=== PATIENT | female | born 1960 | race Caucasian/White ===

== ENCOUNTER 2016-10-13 05:23 | Day surgery (SDC) | payer OTHER ==
[2016-10-11 10:08] VITALS: BMI 45.7
[2016-10-13] MEDS ORDERED: ACETAMINOPHEN 325 MG TABLET (FP) PO PRN (11:16)
[2016-10-13] MEDS ORDERED: oxyCODONE HCL 5 MG TABLET PO PRN (11:16)
[2016-10-13] MEDS ORDERED: IBUPROFEN 400 MG TABLET (FP) PO PRN (11:16)
--- NOTE | 2016-10-13 11:16 | HP ---
History & Physical Update - History History: No Change - Physical Physical: No Change - Assessment Assessment: No Change - Plan Plan: No Change (ovarian cyst, post menopausal bleeding - for unilateral oophorectomy, hysteroscopy, D&C)
[2016-10-13] MEDS ORDERED: ONDANSETRON 4 MG/2 ML VIAL IVPUSH PRN (11:20)
[2016-10-13] MEDS ORDERED: PROMETHAZINE HCL 25 MG/1 ML VIAL IVPUSH PRN (11:20)
[2016-10-13] MEDS ORDERED: MIDAZOLAM HCL 2 MG/2 ML SINGLE DOSE VIAL ONE (11:30)
[2016-10-13] MEDS ORDERED: LACTATED RINGERS SOLUTION 1,000 ML IV SCH (11:30)
[2016-10-13] MEDS ORDERED: BUPIVACAINE HCL/PF 0.5% (5MG/ML) 10 ML VIAL ONE (11:44)
[2016-10-13] MEDS ORDERED: PROPOFOL 20 ML ONE (12:10)
[2016-10-13] MEDS ORDERED: ROCURONIUM BROMIDE 50 MG/5 ML VIAL ONE (12:11)
[2016-10-13] MEDS ORDERED: LIDOCAINE HCL/PF 2% SDV 5ML VIAL ONE ×2 (12:11→13:02)
[2016-10-13] MEDS ORDERED: LIDOCAINE HCL 2% JELLY (5 ML/TUBE) ONE (12:11)
[2016-10-13] MEDS ORDERED: ceFAZolin SODIUM 1 GM VIAL IVPB ONE ×2 (12:13)
[2016-10-13] MEDS ORDERED: ceFAZolin SODIUM 1 GM VIAL ONE (12:21)
[2016-10-13] MEDS ORDERED: ONDANSETRON 4 MG/2 ML VIAL ONE (13:02)
[2016-10-13] MEDS ORDERED: DEXAMETHASONE SOD PHOSPHATE 4 MG/1 ML VIAL ONE (13:02)
[2016-10-13] MEDS ORDERED: KETOROLAC TROMETHAMINE 30 MG/1 ML VIAL ONE (13:02)
[2016-10-13] MEDS ORDERED: NEOSTIGMINE METHYLSULFATE 0.5 MG/ML - 10 ML MDV ONE (13:15)
[2016-10-13] MEDS ORDERED: GLYCOPYRROLATE 0.2 MG/1 ML VIAL ONE (13:15)
--- NOTE | 2016-10-13 14:00 | OP ---
Operative Note - Note: Operative Date: 10/13/16 Operation: left salpingo oophorectomy, hysteroscopy, D&C, cervical polypectomy Findings: large fluid filled ovarian cyst - left ovary normal right ovary and fallopian tube cervical polyp normal appearing endometrium Surgeon: Jennifer Rivero Roving Machine Operator: Ester Moy Anesthesiologist/CORN GRINDER: Zaira Edwards MD Anesthesia: General Specimens Removed: left fallopian tube and ovary, endometrial currettings, cervical polyp Estimated Blood Loss (mls): 25 Operative Report Dictated: Yes
[2016-10-13] MEDS ORDERED: oxyCODONE HCL 5 MG TABLET ONE (16:28)
[2016-10-13] MEDS ORDERED: oxyCODONE HCL 5 MG TABLET PO ONE (16:31)
[2016-10-13 17:43] VITALS: BP 130/70; PULSE 78
[2016-10-13 17:47] VITALS: TEMP 98
--- NOTE | 2016-10-14 13:29 | PATH ---
Surgical Pathology Report Patient Name: UVALDO RASMUSSEN [facility]. Rec. #: [id number] /Age/Gender: 1960 (Age: 56) / F Account: [id number] Location: [facility] SURGICAL Taken: 10/13/2016 Received: 10/13/2016 Reported: 10/14/2016 Physicians: Jennifer Rivero M.D. Specimen(s) Received A: LEFT OVARIAN CYST B: CERVICAL POLYP C: ENDOMETRIAL CURETTINGS Clinical History Left ovarian cyst Intraoperative Consult Diagnosis Left ovarian cyst, gross examination: Lining with small papillary projections. No overt features of malignancy. Defer to permanents for final interpretation. Dr. Gallego, 10/13/16. Final Diagnosis A. OVARY AND FALLOPIAN TUBE, LEFT, SALPINGO-OOPHORECTOMY: OVARY WITH BENIGN PAPILLARY SEROUS CYSTADENOMA. FALLOPIAN TUBES FOCAL TUBO-OVARIAN ADHESIONS. B. CERVICAL POLYP, POLYPECTOMY: ULCERATED ENDOCERVICAL POLYP C. ENDOMETRIUM, CURETTAGE: FRAGMENTS OF INACTIVE ENDOMETRIUM. FRAGMENTS OF BENIGN ENDOCERVICAL TISSUE. FRAGMENTS OF BENIGN SQUAMOUS EPITHELIUM. Electronically Signed Ventura Gallego M.D. Gross Description A. Received fresh labeled "left ovary and tube" is a 7.0 x 6.5 x 1.0 cm ovarian cyst with an attached 5 cm in length portion of fimbriated fallopian tube. The outer surface of the fallopian tube is jackson-red. Sectioning reveals an unremarkable lumen. The outer surface of the ovarian cyst displays a focal defect and is jackson-pink and smooth. There is no fluid present within the lumen. The inner lining displays focal small papillary excrescences. An intraoperative gross examination is performed. Gear Generator Set Up Operator sections are submitted in 9 cassettes as follows: 1-fimbria; 2-cross sections of fallopian tube; 5-1-abhmlpljdbdkxb cyst. B. Received in formalin labeled "cervical polyp" is a 1.5 x 0.6 x 0.2 cm pink-jackson, polypoid portion of soft tissue. Also received within the same container is a 2.3 x 2.2 x 0.3 cm aggregate of jackson-red soft tissue fragments admixed with mucus. The specimen is entirely submitted in 2 cassettes as follows: 1-polyp; 2-separate soft tissue fragments. C. Received in formalin labeled "endometrial curettings" and a 1.6 x 1.5 x 0.3 cm aggregate of jackson-red soft tissue fragments. The formalin is filtered and the specimen is entirely submitted in one cassette. 10/13/201610/13/2016
--- NOTE | 2016-10-19 09:58 | OP ---
DATE OF OPERATION: 10/13/2016 PREOPERATIVE DIAGNOSIS: Postmenopausal bleeding and large approximately 8-cm ovarian cyst. PROCEDURE: Left salpingo-oophorecetomy, hysteroscopy, dilatation and curettage, and cervical polypectomy. SURGEON: Jennifer Rivero MD WARDROBE COORDINATOR: Ester Moy MD. ESTIMATED BLOOD LOSS: 25 mL. COMPLICATIONS: None. ANESTHESIA: General administered by Zaira Edwards MD. FINDINGS: Included large fluid-filled ovarian cyst in the left ovary, normal right ovary and fallopian tube, a cervical polyp, and a normal appearing intrauterine cavity. SPECIMENS REMOVED: Included the left fallopian tube and ovary, endometrial curettings, and cervical polyp. BRIEF HISTORY AND PROCEDURE: Patient is a 56-year-old female who had been seen in the office with complaints of postmenopausal bleeding. She did not tolerate an interoffice endometrial biopsy, and upon ultrasound examination was noted to also have an incidental large ovarian cyst. The cyst was observed for approximately 2-3 months, and it persisted, at which point, the patient signed consents and agreed to undergo a laparoscopic removal of the ovarian cyst as well as a diagnostic hysteroscopy and dilatation and curettage. The patient was admitted to [facility] on October 13, 2016. Consents for the procedure were reconfirmed. The patient was taken back to the operating room where she was given general anesthesia by Dr. Edwards without difficulty. She was placed in the dorsal lithotomy position, prepped and draped in the usual sterile fashion, and a hard time-out was performed. A Medina catheter was placed under sterile conditions. A 5-mm skin incision was created in the base of the umbilicus, and a Veress needle was placed intraabdominally. The abdomen was insufflated with CO2 gas. A 5-mm trocar was placed intraabdominally through the umbilical incision, and after confirmation of intraabdominal placement after insertion of the camera, two bilateral lower quadrant ports were placed, 5 mm on the left and 10 mm on the right lower quadrant. The ovary was elevated and attempted to be dissected off its attachment to the infundibulopelvic ligament as well as to the utero-ovarian ligament. However, the ovary was too big to manipulate at this point. During handling, the ovary and cyst were ruptured, the fluid was copiously irrigated and suctioned. At this point, the ovary was able to be elevated and dissected off its attachments with the LigaSure device, and the ovary and fallopian tube were both placed inside EndoCatch bag and removed from the 10-mm right low quadrant port without difficulty. Excellent hemostasis was observed at the surgical site. The right fallopian tube and ovary appeared to be normal. No other intraabdominal abnormalities including any issues with the appendix were appreciated upon observation. Irrigation was completed in the pelvis at this time. Again, good hemostasis was achieved at the operating site. All the instruments were then removed from the abdomen. Abdomen was desufflated. Trocars were removed, and the skin incisions reapproximated using 0 Biosyn suture and skin glue. Attention was then turned below to the vagina, where a speculum was placed. Upon placement of the speculum, immediate visualization of the cervical polyp was appreciated, which was excised with polyp forceps at this time. The cervix was then dilated to accommodate diagnostic hysteroscope, which was placed into the fundus. Bilateral tubal ostia were appreciated. No intrauterine abnormalities or lesions were appreciated. A dilatation and curettage was then completed in the usual fashion, and endometrial curettings were sent to Pathology for permanent evaluation. All instruments were removed from the vagina. All sponge, needle, and instrument counts were reported to be correct. The patient was then awoken from anesthesia, Medina catheter was removed, and she was recovering in stable condition in the postoperative area after the procedure. JENNIFER RIVERO DO /[id number]
== END 2016-10-13 17:30 | disposition home or self-care (01) ==
LOC: JASU-SURG 05:23
PROVIDERS: ATTEND Obstetrics & Gynecology
PROC: 0UDB8ZX Extraction of Endometrium, Via Natural or Artificial Opening Endoscopic, Diagnostic (ICD-10-PCS; 2016-10-13)
PROC: 0UB14ZZ Excision of Left Ovary, Percutaneous Endoscopic Approach (ICD-10-PCS; principal; 2016-10-13 11:00)
PROC: 0UB64ZZ Excision of Left Fallopian Tube, Percutaneous Endoscopic Approach (ICD-10-PCS; 2016-10-13 11:00)
PROC: 0UBC8ZX Excision of Cervix, Via Natural or Artificial Opening Endoscopic, Diagnostic (ICD-10-PCS; 2016-10-13 11:00)
DX: N83.202 Unspecified ovarian cyst, left side (principal); N84.1 Polyp of cervix uteri
CPT/HCPCS: 88305-TC; 88307-TC; 94760

== ENCOUNTER 2018-10-11 10:06 | Day surgery (SDC) | payer OTHER | END 2018-10-11 12:40 | disposition home or self-care (01) | LOC: JASU-ENDO 10:06 ==

== ENCOUNTER 2019-07-03 23:40 | Emergency (ER) | payer OTHER ==
[2019-07-03 23:52] VITALS: BP 148/84; PULSE 90; TEMP 98.4; BMI 44.9
[2019-07-04] MEDS ORDERED: ONDANSETRON 4 MG/2 ML VIAL IVPB ONE (00:03)
[2019-07-04] MEDS ORDERED: KETOROLAC TROMETHAMINE 30 MG/1 ML VIAL IVPUSH ONE (00:03)
[2019-07-04] MEDS ORDERED: SODIUM CHLORIDE 1,000 ML IV ONE (00:03)
--- NOTE | 2019-07-04 00:04 | PDOC ---
History of Present Illness - General Chief Complaint: Pain Stated Complaint: ABD PAIN History Source: Patient Exam Limitations: No Limitations - History of Present Illness Initial Comments: 07/04/19 00:00 This is a 59-year-old female who is morbidly obese. Patient comes in complaining of right upper quadrant abdominal pain x1 day. Patient said pain began after she ate breakfast. Patient denies any vomiting or diarrhea. Patient denies any fevers or chills. Patient has a history significant for type 2 diabetes. Allergies: as per nursing notes Past Medical History: none Social history: Lives with family. No smoking. No alcohol. No illicit drugs. Surgical history: None General: No fevers or chills, no weakness, no weight loss HEENT: No change in vision. No sore throat,. No ear pain CardioVascular: no chest discomfort. No shortness of breath Respiratory:No cough, or wheezing. Gastrointestinal: no nausea, vomiting, diarrhea or constipation, No rectal bleeding, abdominal pain as per HPI Genitourinary: No dysuria, hematuria, or frequency Musculoskeletal: No joint or muscle pain or swelling Neurologic: No headache, vertigo, dizziness or loss of consciousness Psychiatric: nor depression Skin: No rashes or easy bruising Endocrine: no increased thirst or abnormal weight change Allergic: no skin or latex allergy All other systems reviewed and normal Exam: General: Well-nourished well-developed individual, no acute distress HEENT: Throat: Normal, tonsils normal, no erythema or exudate Neck: Supple, no meningeal signs, no lymphadenopathy Eyes::Pupils equal reactive and round, extraocular motion intact Chest: Nontender to palpation Cardiac: S1-S2 normal, regular rate and rhythm, no murmurs rubs or gallops Respiratory: Lungs clear to auscultation bilateral Abdomen: Soft, nondistended, normal bowel sounds, there is moderate tenderness right upper quadrant and epigastric area no guarding or rebound Extremities: Warm, dry, no cyanosis, clubbing, or edema Skin: No rashes Neuro: Alert and oriented x3, CN II - XII intact, nonfocal exam with normal strength, normal sensation, normal reflexes, normal gait, Psych: Normal mood and affect Assessment and plan: This is a 59-year-old female who is morbidly obese and history of diabetes who comes in with right upper quadrant epigastric abdominal pain. Patient is tender over the gallbladder and epigastric area. Work-up initiated including CBC, comp, lipase and ultrasound. Patient given IV fluids and Toradol for the pain. Past History - Past Medical History Allergies/Adverse Reactions: Allergies Allergy/AdvReac Type Severity Reaction Status Date / Time No Known Allergies Allergy Verified 10/11/16 10:00 Home Medications: Ambulatory Orders NK [No Known Home Medication] 07/03/19 Anemia: No Asthma: No Cancer: No Cardiac Disorders: Yes (OCCASIONAL PALPITATIONS) CVA: No COPD: No CHF: No Dementia: No Diabetes: Yes ('DIET CONTROLLED') GI Disorders: No Disorders: No HTN: No Hypercholesterolemia: No Liver Disease: No Seizures: No Thyroid Disease: No - Psycho Social/Smoking Cessation Hx Smoking History: Never smoked Hx Alcohol Use: Yes (social) Drug/Substance Use Hx: No Substance Use Type: None Hx Substance Use Treatment: No *Physical Exam - Vital Signs Last Vital Signs Temp Pulse Resp BP Pulse Ox 98.4 F 90 18 148/84 98 07/03/19 23:43 07/03/19 23:43 07/03/19 23:43 07/03/19 23:43 07/03/19 23:43 ED Treatment Course - LABORATORY CBC & Chemistry Diagram: 07/04/19 00:55 07/04/19 00:55 Discharge - Discharge Information Problems reviewed: Yes Clinical Impression/Diagnosis: Abdominal pain Qualifiers: Abdominal location: upper abdomen, unspecified Qualified Code(s): R10.10 - Upper abdominal pain, unspecified Condition: Stable Disposition: HOME - Admission No - Follow up/Referral - Patient Discharge Instructions Additional Instructions: It is important you follow-up with your doctor if you continue to have abdominal pain. Return to the emergency department immediately with ANY new, persistent or w orsening symptoms. Continue any medications as previously prescribed by your physician. You should follow up with your primary doctor as soon as possible regarding today's emergency department visit. . Please make sure your doctor reviews the results of your emergency evaluation. Thank you for coming to the Emergency Department today for your care. It was a pleasure to see you today. Please note that your evaluation is INCOMPLETE until you follow-up with your doctor. - Post Discharge Activity
[2019-07-04] MEDS ORDERED: KETOROLAC TROMETHAMINE 30 MG/1 ML VIAL ONE (00:07)
[2019-07-04] MEDS ORDERED: ONDANSETRON 4 MG/2 ML VIAL ONE (00:07)
[2019-07-04 01:30] LABS: BASO % 0.9 % (0-2.0); EOS % 3.3 % (0-4.5); HEMATOCRIT 40.8 % (32.4-45.2); HEMOGLOBIN 13.3 GM/dL (10.7-15.3); LYMPH % 32.3 % (8-40); MCH 26.7 pg (25.7-33.7); MCHC 32.6 g/dl (32.0-36.0); MEAN CELL VOLUME 81.9 fl (80-96); MEAN PLT VOLUME 8.6 fl (7.5-11.1); MONO % 7.6 % (3.8-10.2); NEUT % 55.9 % (42.8-82.8); PLATELET COUNT 341 K/MM3 (134-434); RBC 4.98 M/mm3 (3.60-5.2); RDW 13.9 % (11.6-15.6); WHITE BLOOD COUNT 10.7 K/mm3 (4.0-10.0)
[2019-07-04 01:33] LABS: LIPASE 58 U/L (73-393)
[2019-07-04] MEDS ORDERED: HYOSCYAMINE SULFATE 0.125 MG *ODT PO ONE (02:37)
[2019-07-04] MEDS ORDERED: MAG HYDROX/AL HYDROX/SIMETH 30 ML UNIT-DOSE CUP PO ONE (02:37)
[2019-07-04] MEDS ORDERED: HYOSCYAMINE SULFATE 0.125 MG *ODT ONE (02:53)
[2019-07-04] MEDS ORDERED: MAG HYDROX/AL HYDROX/SIMETH 30 ML UNIT-DOSE CUP ONE (02:53)
[2019-07-04 02:58] LABS: ALBUMIN 3.3 g/dl (3.4-5.0); ALK PHOS 138 U/L (45-117); ANION GAP 6 MMOL/L (8-16); BILIRUBIN,TOTAL 0.5 mg/dL (0.2-1); BLOOD UREA NITROGEN 15.7 mg/dL (7-18); CALCIUM 8.5 mg/dL (8.5-10.1); CHLORIDE 107 mmol/L (98-107); CO2 29 mmol/L (21-32); CREATININE 0.8 mg/dL (0.55-1.3); GLUCOSE,RANDOM 118 mg/dL (74-106); POTASSIUM 4.2 mmol/L (3.5-5.1); SGOT/AST 164 U/L (15-37); SGPT/ALT 82 U/L (13-61); SODIUM 141 mmol/L (136-145); TOT PROT 7.4 g/dl (6.4-8.2)
--- NOTE | 2019-07-04 14:05 | EKG ---
Test Reason : Blood Pressure : / mmHG Vent. Rate : 083 BPM Atrial Rate : 083 BPM P-R Int : 202 ms QRS Dur : 078 ms QT Int : 368 ms P-R-T Axes : 050 007 049 degrees QTc Int : 432 ms NORMAL SINUS RHYTHM NORMAL ECG NO PREVIOUS ECGS AVAILABLE Confirmed by ELIER GREEN MD ([id number]) on 07/04/2019 2:04:44 PM Referred By: MD RICH Confirmed By:ELIER GREEN MD
== END 2019-07-04 06:40 | disposition home or self-care (01) ==
LOC: FER 23:40
PROC: 3E0333Z Introduction of Anti-inflammatory into Peripheral Vein, Percutaneous Approach (ICD-10-PCS; principal; 2019-07-03)
PROC: 3E033GC Introduction of Other Therapeutic Substance into Peripheral Vein, Percutaneous Approach (ICD-10-PCS; 2019-07-03)
DX: R10.10 Upper abdominal pain, unspecified (principal); E66.01 Morbid (severe) obesity due to excess calories; Z68.42 Body mass index [BMI] 45.0-49.9, adult; R00.2 Palpitations; R73.03 Prediabetes
CPT/HCPCS: 36415; 74177-TC; 76705-TC; 80053; 82550; 83690; 84484; 85025; 93005; 99285-25; J7030